=== PATIENT | male | born 2000 | race Caucasian/White ===

== ENCOUNTER 2020-06-14 16:26 | Emergency (ER) | payer BC, OTHER, SELFPAY ==
[2020-06-14 16:32] VITALS: BP 123/87; PULSE 95; RESP 18; TEMP 36.9; O2SAT 98
--- NOTE | 2020-06-14 16:32 | ED.URI ---
HPI - URI/Sore Throat General Chief Complaint: Upper Respiratory Infection Stated Complaint: sore throat/sinus drainage/sinus pressure Time Seen by Provider: 06/14/20 16:32 Source: patient and RN notes reviewed History of Present Illness HPI Narrative: Patient is a 20-year-old male who presents the urgent care with complaints of sinus congestion, head pressure, postnasal drainage and sore throat. Patient states that started this morning he has taken 1 dose of DayQuil. Denies of any known fever, nausea, vomiting. Denies of any known exposure to COVID or strep. No other acute complaints. No acute distress noted. Patient aware of the plan of care. Some parts of this dictation were generated by voice recognition software and may contain typographical and/or grammatical inaccuracies. Related Data Allergies Allergy/AdvReac Type Severity Reaction Status Date / Time amoxicillin Allergy Unknown Rash Verified 06/14/20 16:45 clavulanic acid Allergy Unknown Rash Verified 06/14/20 16:45 Review of Systems Review of Systems: Narrative: CONSTITUTIONAL: Denies fever, chills, or sweats. EYES: Denies visual changes, redness, or discharge. ENT: Reports of nasal congestion, sore throat, head congestion and postnasal drainage CARDIOVASCULAR: Denies chest pain, palpitations, or edema. RESPIRATORY: Denies cough or dyspnea. GASTROINTESTINAL: Denies abdominal pain, nausea, vomiting, or diarrhea. GENITOURINARY: Denies dysuria or hematuria. SKIN: Denies rash or itching. MUSCULOSKELETAL: Denies back pain, joint pain, or myalgia. NEUROLOGIC: Reports of intermittent headaches All other systems reviewed are negative, except as documented in HPI. PMFSH Comments At the time of my signature, I reviewed and agree with the nursing past medical, surgical, social, and family history. There is no relevant family history pertinent to the patient complaint. Exam Narrative: Exam Narrative: GENERAL: This is a well-nourished, well-developed patient, in no apparent distress. HEAD: normocephalic, atraumatic. EYES: PERRL. Sclera clear/white. Vision is grossly intact. EARS: External ears normal, auditory canals clear and without drainage, TMs normal without perforation. Hearing grossly intact. NOSE: External nose normal with no obvious nasal discharge, nares without redness, no rhinorrhea. THROAT: Mucous membranes moist, mild erythema noted posterior oropharynx with mild postnasal drainage NECK: Neck supple CARDIOVASCULAR: Regular rate and rhythm without murmurs, gallops, or rubs. RESPIRATORY: Clear to auscultation. Breath sounds equal bilaterally. No wheezes, rales, or rhonchi. SKIN: warm, intact with no suspicious lesions or rash, good texture and turgor. NEURO: awake, alert, and oriented to person, place and time. There were no obvious focal neurologic abnormalities. EXTREMITIES: No clubbing, cyanosis, or edema. Course Vital Signs Vital signs: Vital Signs Temperature 98.4 F 06/14/20 16:32 Pulse Rate 95 06/14/20 16:32 Respiratory Rate 18 06/14/20 16:32 Blood Pressure 123/87 06/14/20 16:32 Pulse Oximetry 98 06/14/20 16:32 Temperature 98.4 F 06/14/20 16:32 Pulse Rate 95 06/14/20 16:32 Respiratory Rate 18 06/14/20 16:32 Blood Pressure 123/87 06/14/20 16:32 Pulse Oximetry 98 06/14/20 16:32 Reviewed MDM - URI/Sore Throat MDM Narrative Medical decision making narrative: Reviewed lab results with the patient. He is aware that strep swab was positive. Advised the patient to complete oral antibiotic regimen as prescribed. Make sure to eat and drink with medication. Use Claritin/Zyrtec as needed for postnasal drainage. Use Tylenol/ibuprofen as needed for fever pain. Increase water intake and rest. Do not sleep with a fan on. Use a humidifier at night. Be sure to change her toothbrush within 2 to 3 days. You will be contagious up to 24 hours after the start of antibiotic therapy. Follow-up with your PCP within 2 to 5 days or for wo
== END 2020-06-14 17:00 | disposition home or self-care (01) ==
PROVIDERS: Emergency Provider Nurse Practitioner Family
DX: J02.0 Streptococcal pharyngitis (principal)
CPT/HCPCS: 87880; 99213; G0463